=== PATIENT | female | born 1990 | race African-American/Black ===

== ENCOUNTER 2017-12-03 13:10 | Emergency (ER) | payer OTHER ==
[~2017-12-03] VITALS: Ht 170.2 cm; Wt 74.8 kg
[~2017-12-03 13:10] MED LIST: BIRTH CONTROL PILLS; CARISOPRODOL 3350 MG PO; DEPO-PROVE150 MG/1 M IM; FLEXERIL PO; IBUPROFEN 400400 M1 PO; IBUPROFEN 600600 M1 PO; IBUPROFEN 800800 MG PO; ILOTYCIN1 GM OP; LAMICTAL100 MG PO; LEVSIN0.125 MG PO; NAPROSYN500 MG PO; NORCO 5-325 TA1 EACH PO; NORCO 7.5-3251 EACH PO; SEROQUEL 50 MG50 MG PO; TYLENOL EX-STR500 M2 PO; ULTRAM 50MG TAB50 MG PO; XANAX1 MG PO; implanon
[2017-12-03] MEDS ORDERED: MOBIC15 MG PO (14:32)
[2017-12-03] MEDS ORDERED: LIORESAL 10 MG10 MG PO (14:32)
[2017-12-03 14:52] VITALS: BP 121/85
== END 2017-12-03 14:54 | disposition home or self-care (01) ==
LOC: ER 13:10
DX: S16.1XXA Strain of muscle, fascia and tendon at neck level, initial encounter (principal); S20.229A Contusion of unspecified back wall of thorax, initial encounter; F31.9 Bipolar disorder, unspecified; F41.9 Anxiety disorder, unspecified; Z88.8 Allergy status to other drugs, medicaments and biological substances; Y04.2XXA Assault by strike against or bumped into by another person, initial encounter; Y93.89 Activity, other specified; Y92.89 Other specified places as the place of occurrence of the external cause; Y99.8 Other external cause status

== ENCOUNTER 2019-02-24 13:39 | Emergency (ER) | payer OTHER ==
[~2019-02-24] VITALS: Ht 170.2 cm; Wt 79.4 kg
[~2019-02-24 13:39] MED LIST changes: +LIORESAL 10 MG10 MG PO; +MOBIC15 MG PO
[2019-02-24 13:40] VITALS: BP 167/99
[2019-02-24] MEDS ORDERED: XANAX1 MG PO ×2 (14:05→14:33)
[2019-02-24] MEDS ORDERED: SEROQUEL 25 MG25 M1 PO ×2 (14:06→14:33)
[2019-02-24] MEDS ORDERED: PROZAC20 MG PO ×2 (14:06→14:33)
[2019-02-24] MEDS ORDERED: DOXEPIN 50MG CA50 MG PO ×2 (14:07→14:33)
== END 2019-02-24 14:27 | disposition home or self-care (01) ==
LOC: ER 13:39
DX: F41.9 Anxiety disorder, unspecified (principal); Z76.0 Encounter for issue of repeat prescription; F31.9 Bipolar disorder, unspecified; Z88.4 Allergy status to anesthetic agent; Z88.8 Allergy status to other drugs, medicaments and biological substances; Z98.890 Other specified postprocedural states

== ENCOUNTER 2019-09-01 14:36 | Emergency (ER) | payer OTHER ==
[~2019-09-01] VITALS: Ht 170.2 cm; Wt 90.7 kg
[~2019-09-01 14:36] MED LIST changes: +DOXEPIN 50MG CA50 MG PO; +PROZAC20 MG PO; +SEROQUEL 25 MG25 M1 PO
[2019-09-01 14:38] VITALS: BP 152/88
[2019-09-01] MEDS ORDERED: ZOLOFT50 M1 PO (15:11)
[2019-09-01] MEDS ORDERED: WELLBUTRIN 75 M75 M1 PO (15:11)
[2019-09-01] MEDS ORDERED: WELLBUTRIN SR150 MG PO (15:27)
[2019-09-01] MEDS ORDERED: ZOLOFT100 MG PO (15:27)
== END 2019-09-01 16:03 | disposition home or self-care (01) ==
LOC: ER 14:36
DX: F31.9 Bipolar disorder, unspecified (principal); Z76.0 Encounter for issue of repeat prescription; F41.9 Anxiety disorder, unspecified; Z79.899 Other long term (current) drug therapy; Z88.8 Allergy status to other drugs, medicaments and biological substances